=== PATIENT | female | born 1975 | race Caucasian/White ===

== ENCOUNTER 2020-08-17 01:46 | Emergency (ER) | payer MEDICAID, SELFPAY ==
[~2020-08-17] VITALS: Ht 167.6 cm; Wt 82.4 kg
--- NOTE | 2020-08-17 02:10 | NUR ---
ASSESSMENT MADE. CHART UP FOR MD TO SEE.
[2020-08-17] MEDS ORDERED: QUET25TA5 PO (02:16)
[2020-08-17] MEDS ORDERED: LITH600C PO (02:16)
[2020-08-17] MEDS ORDERED: ATOM10CA PO (02:16)
--- NOTE | 2020-08-17 02:25 | NUR ---
PA AT BEDSIDE.
--- NOTE | 2020-08-17 02:39 | NUR ---
DEPARTMENT OPERATIONS MANAGER AT BEDSIDE FOR BLOOD DRAW.
--- NOTE | 2020-08-17 02:51 | NUR ---
URINE SAMPLE OBTAINED AND SENT TO LAB.
[2020-08-17 02:56] LABS: ALANINE AMINOTRANSFERASE 17 U/L (12-78); ANION GAP 6 mmol/L (5-15); CALCIUM 8.6 mg/dL (8.5-10.1); CHLORIDE 113 mmol/L (98-107); CREATININE 0.77 mg/dL (0.55-1.02)
[2020-08-17 02:57] LABS: SALICYLATE LEVEL < 1.7 mg/dL (2.8-20.0)
[2020-08-17 03:01] LABS: ALKALINE PHOSPHATASE 42 U/L (45-117); BILIRUBIN,TOTAL 0.5 mg/dL (0.2-1.0); TOTAL PROTEIN 6.8 g/dL (6.4-8.2)
[2020-08-17 03:08] LABS: MEAN CORPUSCULAR HEMOGLOBIN 30.1 pg (27.0-34.8); MEAN CORPUSCULAR HGB CONC 33.8 g/dL (32.4-35.8); MEAN PLATELET VOLUME 8.3 fL (7.4-10.4); PLATELET COUNT 284 x10^3/uL (130-400); RED BLOOD COUNT 4.01 x10^6/uL (3.82-5.3); RED CELL DISTRIBUTION WIDTH 13.2 % (9.6-15.2)
[2020-08-17 03:12] LABS: MICROSCOPIC NOT IND
[2020-08-17 03:27] LABS: AMPHETAMINE SCREEN, URINE Negative (Negative); BARBITURATE SCREEN, URINE Negative (Negative); BENZODIAZEPINE SCREEN, URINE Negative (Negative); CANNABINOID SCREEN, URINE Negative (Negative); COCAINE SCREEN, URINE Negative (Negative); METHADONE SCREEN, URINE Negative (Negative); OPIATE SCREEN, URINE Negative (Negative)
[2020-08-17 03:29] LABS: MD YES
[2020-08-17 03:33] LABS: BASOS#(MANUAL) 0.07 x10^3/uL (0-0.1); BASOS% (MANUAL) 1 % (0-1); ECHINOCYTES 1+; EOS#(MANUAL) 0.07 x10^3/uL (0.0-0.4); EOS% (MANUAL) 1 % (1-7); LYMPH#(MANUAL) 1.58 x10^3/uL (1-3.4); LYMPHS% (MANUAL) 22 % (22-44); MONOS#(MANUAL) 0.58 x10^3/uL (0.3-2.7); MONOS% (MANUAL) 8 % (2-9); OVALOCYTES 1+; SEGS% (MANUAL) 68 % (42-75)
[2020-08-17 03:34] LABS: <PLATELET ESTIMATE> ADEQUATE; LARGE PLATELETS 1+
[2020-08-17] MEDS ORDERED: NICOTINE 7 MG/24 HR PATCH.TD24 ONE (03:35)
[2020-08-17] MEDS: NICOTINE 7 MG/24 HR PATCH.TD24 TD SCH (04:00)
--- NOTE | 2020-08-17 04:01 | NUR ---
PATIENT STATES THAT SHE IS A SMOKER AND WANTING TO HAVE A NICOTINE PATCH. AWARE. APPLIED.
--- NOTE | 2020-08-17 04:54 | NUR ---
Packet faxed to [facility] for first dibs.
--- NOTE | 2020-08-17 05:05 | NUR ---
patient resting in the gurney. no needs at this time. patient placed on legal hold.
--- NOTE | 2020-08-17 05:31 | NUR ---
Packet faxed to [facility], [facility]
--- NOTE | 2020-08-17 05:51 | NUR ---
patient sleeping, respiration unlabored.
--- NOTE | 2020-08-17 06:46 | NUR ---
REPORT FROM BEVERLEY ORLANDO. PT SLEEPING ON MALIA[place] IN VIEW. IN SAFE ENVIRONMENT.
--- NOTE | 2020-08-17 06:46 | NUR ---
report to BEVERLEY Millard.
--- NOTE | 2020-08-17 07:15 | NUR ---
PT BELONGINGS PLACED IN LOCKED LOCKER (1X BAG). PT CHANGED INTO GOWN, SITTER IN VIEW. NADN/VSS. PT IN SAFE ENVIRONMENT.
--- NOTE | 2020-08-17 08:27 | NUR ---
PT PROVIDED MEAL TRAY, WATER AND JUICE. SITTER IN VEW. PT IN SAFE ENVIRONMENT.
--- NOTE | 2020-08-17 08:50 | NUR ---
REPORT TO BEVERLEY HUGHES
--- NOTE | 2020-08-17 08:57 | NUR ---
REPORT RECEIVED FROM ELEONORA RN
--- NOTE | 2020-08-17 10:00 | NUR ---
PT RESTING IN [place] COMFORTABLY. CALL LIGHT WITHIN REACH.
--- NOTE | 2020-08-17 10:30 | NUR ---
PT OFFERED HOSPITAL BED. PT REFUSED SWITCHING OUT OF [facility].
--- NOTE | 2020-08-17 11:15 | NUR ---
PT IN ROOM PACING. SITTER AT BEDSIDE. CALL LIGHT WITHIN REACH
[2020-08-17] MEDS ORDERED: QUETIAPINE 100MG TABLET ONE ×2 (12:21→22:46)
[2020-08-17] MEDS ORDERED: QUETIAPINE 25MG TABLET PO PRN (12:30)
[2020-08-17] MEDS ORDERED: LITHIUM CARBONATE 300 MG CAPSULE PO ONE (12:30)
[2020-08-17] MEDS ORDERED: OLANZAPINE 10 MG INJ IM PRN (12:30)
--- NOTE | 2020-08-17 12:30 | NUR ---
PT AGITATED AND PACING IN AND OUT OF ROOM. PT GIVEN MEDICATIONS PER ORDER. AWAITING MEAL TRAY. PT GIVEN SNACKS IN THE MEANTIME. PT EDUCATED TO STAY IN ROOM. SITTER AT BEDSIDE.
[2020-08-17] MEDS ORDERED: QUETIAPINE 25MG TABLET ONE (12:36)
[2020-08-17] MEDS ORDERED: OLANZAPINE 10 MG INJ IM ONE (12:55)
--- NOTE | 2020-08-17 13:15 | NUR ---
PT BECOMING INCREASINGLY AGITATED AND AGGRESSIVE. PT YELLING "I DONT WANT LYNNETTE PEREIRA SITTING OUTSIDE! I WANT MY GIRLFRIEND OUT THERE INSTEAD!" PT THREW MILK AT THE WINDOW AND THREW ALL OF HER LINENS ON THE FLOOR. SECURITY CALLED AND AT BEDSIDE. THIS RN ABLE TO GET PT TO SIT IN [facility] FOR ZYPREXA IM ADMINISTRATION. MEAL TRAY PROVIDED. PT CALM AND COMPLIANT.
--- NOTE | 2020-08-17 14:28 | NUR ---
PT SLEEPING. RESPIRATIONS EVEN, WNL. SITTER AT BEDSIDE.
--- NOTE | 2020-08-17 15:18 | NUR ---
PT WITH [employer]. PACKET WITH UPDATED FACESHEET FAXED TO [facility]
--- NOTE | 2020-08-17 15:49 | NUR ---
PT RESTING COMFORTABLY. RESPIRATIONS EVEN AND WNL. BLANKET PROVIDED. SITTER AT BEDSIDE.
--- NOTE | 2020-08-17 16:19 | NUR ---
BREAK RN: PT SLEEPING ON [place]. SITTER IN VIEW. PT IN SAFE ENVIRONMENT.
--- NOTE | 2020-08-17 17:15 | NUR ---
PT AMBULATED TO RESTROOM WITH RN.
--- NOTE | 2020-08-17 17:33 | NUR ---
MEAL TRAY PROVIDED. PT MADE AWARE THAT HOSPITAL BED IS AVAILABLE OUTSIDE HER ROOM IF SHE WANTED TO SWITCH. PT REFUSED SWITCHING IN TO BED RIGHT NOW.
--- NOTE | 2020-08-17 19:00 | NUR ---
PT RESTING IN [facility] COMFORTABLY. SITTER AT BEDSIDE. RESPIRATIONS WNL.
--- NOTE | 2020-08-17 20:10 | NUR ---
PT SLEEPING. RESPIRATIONS EVEN AND UNLABORED. SITTER AT BEDSIDE.
[2020-08-17] MEDS: LITHIUM CARBONATE 300 MG TABLET.ER PO SCH (23:10)
[2020-08-17] MEDS: QUETIAPINE 100MG TABLET PO SCH (23:10)
--- NOTE | 2020-08-17 23:11 | NUR ---
PT MEDICATED PER EMAR. PROVIDED WITH UNDERWEAR AND SOCKS REQUESTED. PT FIXATED ON EVENT FROM EARLIER THIS AFTERNOON. PT C/O NOT HAVING ANY HOT FOOD OR HOT MEALS TODAY. RN TOLD PT THEY WOULD TRY FOR FOOD WHEN THE COFFEE CART OPENS. PT EASILY REDIRECTED AND CALMED WITH DECAF COFFEE. VSS AND SITTER OUTSIDE DOOR FOR PT SAFETY.
--- NOTE | 2020-08-18 00:58 | NUR ---
PT PROVIDED WITH MEAL FROM COFFEE CART. PT SLEEPING AT THIS TIME. SITTER AT DOORWAY FOR OBSERVATION.
--- NOTE | 2020-08-18 02:54 | NUR ---
PT CONT TO SLEEP, NO ACUTE DISTRESS NOTED. SITTER AT DOORWAY.
--- NOTE | 2020-08-18 07:05 | NUR ---
REPORT RECEIVED FROM JOSE MIGUEL LOWERY
[2020-08-18] MEDS ORDERED: NICOTINE 7 MG/24 HR PATCH.TD24 ONE (07:15)
[2020-08-18] MEDS: NICOTINE 7 MG/24 HR PATCH.TD24 TD SCH (07:18)
--- NOTE | 2020-08-18 07:25 | NUR ---
NICOTINE PATCH APPLIED TO RUE PER ORDER, PREVIOUS PATCH REMOVED. DIET TRAY ORDERED, NAN.
--- NOTE | 2020-08-18 07:44 | NUR ---
PT OUT IN [place], STATES "I AM BEING DICRIMINATED AGAINST, I WOULD RATHER GO TO ASSISTED. IN ASSISTED THEY CLEAN YOUR ROOMS FOR YOU, I DON'T WANT TO CLEAN MY OWN ROOM". PT UPDATED ON POC, INCLUDING DOUGLAS ARGUETA APRN TO SEE AT 11, BREAKFAST ORDERED, AND IF PT CONTINUES BEHAVIOR OF YELLING AND THREATENING SECURITY WILL BE CALLED.
--- NOTE | 2020-08-18 07:46 | NUR ---
PT REMINDED OF PRN MEDS, STATES "THE WAY TO CALM ME DOWN IS WITH FOOD". PT REMINDED BREAKFAST TRAY WAS ORDERED.
[2020-08-18] MEDS ORDERED: OLANZAPINE 10 MG INJ IM ONE (08:34)
[2020-08-18] MEDS: LITHIUM CARBONATE 300 MG TABLET.ER PO SCH (08:45)
--- NOTE | 2020-08-18 08:48 | NUR ---
PT PACING DOWN THE HALLWAY YELLING "I'D RATHER BE IN [facility] WHERE THEY WOULD TREAT ME BETTER, JUST BECAUSE I DON'T HAVE A WATCH AND DON'T KNOW THE TIME I STILL KNOW WHAT'S GOING ON. I WANT TO BE UNDER THE CARE OF A DOCTOR". SECURITY CALLED TO ASSIST WITH PROVIDING MEDICATION AND BREAKFAST TRAY. BRUNILDA MVA STILL OPERATOR AT BEDSIDE.
--- NOTE | 2020-08-18 09:28 | NUR ---
PT REQUESTING PHONE, PT OFFERED PHONE CALL, PT REFUSED SAYING "THAT'S NOT WHAT I WANT, I NEED FEMININE PRODUCTS". PRODUCTS PROVIDED.
--- NOTE | 2020-08-18 09:45 | NUR ---
PT AGITATED, PACING THROUGH THE HALLWAY SCREAMING "I WANT TO GET THE FUCK OUT OF HERE". SECURITY CALLED.
--- NOTE | 2020-08-18 09:47 | NUR ---
Pt called mother using hospital phone. As pt hung up, she began pacing the hallway and screaming "I thought I took care of everything, I want you to talk to my mom." This RN attempted to get pt's mother's phone number. Pt refused to talk to this RN, yelling "you're a control freak." Security called and pt educated that she needs to stay in her room or she will be placed in restraints for her safety and the safety of the staff.
--- NOTE | 2020-08-18 10:00 | NUR ---
LATE ENTRY: PT INCREASINGLY AGITATED, PACING HALLS, SCREAMING AT STAFF. PLACED IN 2 POINT RESTRAINTS. MEDICATED PER ORDER.
[2020-08-18] MEDS ORDERED: LORazepam 1MG TABLET PO ONE (10:30)
[2020-08-18] MEDS ORDERED: DIPHENHYDRAMINE 25 MG CAPSULE PO ONE (10:30)
[2020-08-18] MEDS ORDERED: DIPHENHYDRAMINE 50 MG CAPSULE ONE (10:37)
[2020-08-18] MEDS ORDERED: LORazepam 1MG TABLET ONE (10:38)
[2020-08-18] MEDS ORDERED: DIPHENHYDRAMINE 50 MG/ML, 1ML ONE (10:47)
[2020-08-18] MEDS ORDERED: LORazepam 2 MG/ML, 1ML ONE (10:48)
--- NOTE | 2020-08-18 12:11 | NUR ---
PT TAKEN OUT OF RESTRAINTS, INTO SHOWER WITH SITTER.
--- NOTE | 2020-08-18 12:38 | NUR ---
SHORTY ZENG, OKAY TO UPDATE. [phone]
--- NOTE | 2020-08-18 12:46 | NUR ---
PT BACK FROM SHOWER, SITTING IN BED, SITTER AT BEDSIDE.
--- NOTE | 2020-08-18 13:20 | NUR ---
TASK RN: PT RESTING IN NAD. SITTER OUTSIDE ROOM FOR SAFE MONITORING.
--- NOTE | 2020-08-18 14:29 | NUR ---
PT RESTING IN BED, VSS, NADN. SITTER AT BEDSIDE.
--- NOTE | 2020-08-18 18:53 | NUR ---
REPORT GIVEN TO BONILLA LOWERY
--- NOTE | 2020-08-18 19:32 | NUR ---
PT RESTING IN BED, ROOM PSYCH SECURE, SITTER BY ROOM, PT DENIES ANY WANTS OR NEEDS.
[2020-08-18] MEDS ORDERED: QUETIAPINE 100MG TABLET ONE (21:26)
[2020-08-18] MEDS ORDERED: QUETIAPINE 25MG TABLET ONE (21:32)
[2020-08-18] MEDS: QUETIAPINE 100MG TABLET PO SCH (21:40)
--- NOTE | 2020-08-18 21:49 | NUR ---
PT GOT HOSPITAL BED, SANDWICH, CHIPS AND JUICE; PT ALLOWED TO MAKE A PHONE CALL; MEDICATION SEROQUEL 12.5MG GIVEN PER PT REQUEST; PT REFUSED VITALS AND SI ASSESSMENT STATING "I WOULD BE TREATED BETTER IN [facility], I WANT SOME ALONE TIME"; SITTER AT BEDSIDE
[2020-08-18] MEDS ORDERED: ZIPRASIDONE 20 MG INJ IM ONE ×3 (22:57→23:03)
--- NOTE | 2020-08-18 23:28 | NUR ---
PT SCREAMING IN HALLS, ROOM AND PACING AROUND HALLS AND ROOM. PROVIDER NOTIFIED, PT MEDICATED PER JUN. PT STATED "SHE DOES NOT LIKE THE FEELING OF GEODONE BECAUSE IT MAKES HER SLEEPY AND SHE CAN NOT TALK TO DR IN MORNING" PT DENIED ALLERGIC REACTION SYMTOMS TO IT. PT AGREED TO SHOT AND PROVIDED SHOT ARM WITHOUT DIFFICULTY.
--- NOTE | 2020-08-19 00:59 | NUR ---
PT RESTING COMFORTABLY IN HOSPITAL BED, PT IN SI SECURE ROOM WITH SITTER OUTSIDE THE DOOR.
--- NOTE | 2020-08-19 02:42 | NUR ---
PT RESTING COMFORTABLY ON BED, ROOM SI SECURE, SITTER OUTSIDE ROOM
--- NOTE | 2020-08-19 03:58 | NUR ---
PT RESTING COMFORTABLY ON BED, ROOM SI SECURE, SITTER OUTSIDE ROOM
--- NOTE | 2020-08-19 05:02 | NUR ---
PT RESTING COMFORTABLY ON BED, ROOM SI SECURE, SITTER OUTSIDE ROOM
--- NOTE | 2020-08-19 06:28 | NUR ---
pt wants 900mg of lithium at night and not the 600mg that was ordered. also pt "wants 2 showers a day"
--- NOTE | 2020-08-19 06:30 | NUR ---
pt provided toothbrush, tooth paste and coffee at pt request.
--- NOTE | 2020-08-19 06:45 | NUR ---
Report received from BEVERLEY Jim and BEVERLEY Bush and care assumed. Pt noted in darkened room with sitter at doorway on arrival to unit.
--- NOTE | 2020-08-19 07:20 | NUR ---
Pt found in hallway speaking on courtesy phone at this time. Sitter remains in direct line of sight of pt.
--- NOTE | 2020-08-19 07:45 | NUR ---
Pt found pacing in hallway with rapid, pressured speech pattern. Pt asking for hot breakfast instead of cold eggs which she states she has had the last 2 AM meals. Pt tray found at RN station and still warm. Juice and decaf coffee with cream and sugar also brought to bedside per pt request at this time. Pt requesting her [place] 600mg stating she did not get it last night. Chart shows she received that dose yesterday in AM instead of PM and Geodon was given in PM. notified and agrees to have pt given 600mg dose now. Med request made to pharmacy.
[2020-08-19 08:11] VITALS: BP 130/75
--- NOTE | 2020-08-19 08:20 | NUR ---
Pt's meal removed with 100% eaten. All items provided going in counted and coming out.
[2020-08-19] MEDS: LITHIUM CARBONATE 300 MG TABLET.ER PO SCH (08:48)
--- NOTE | 2020-08-19 08:54 | NUR ---
Pt medicated with [place] 600mg as requested and agreed upon by Dr. Donato. Pt provided feminine pad per request with stated menstral cycle in progress. Sitter states she is able to take pt to shower when supplies provided.
--- NOTE | 2020-08-19 09:05 | NUR ---
Report given to Claus RN at [facility] at this time via telephone. He states they can accept her and would like arrival of pt at or after 1030 AM today. manager of program notified and transportation being arranged.
--- NOTE | 2020-08-19 10:45 | NUR ---
Pt changing into her personal clothing after report given to [facility] staff for transport to [facility].
== END 2020-08-19 10:56 ==
LOC: ED 10:53
DX: F31.2 Bipolar disorder, current episode manic severe with psychotic features (principal); R25.8 Other abnormal involuntary movements
CPT/HCPCS: 36415; 80053; 80178; 80299; 80307; 80320; 80329; 81003; 84703; 85025; 96372; 99285; J3486; Q0163; G0480